=== PATIENT | female | born 1985 | race Caucasian/White ===

== ENCOUNTER 2016-11-18 13:16 | Emergency (ER) | payer OTHER ==
[~2016-11-18] VITALS: Ht 160 cm; Wt 56.8 kg
[~2016-11-18 13:16] MED LIST: ALBUTEROL17 GM IH; AMBIEN CR12.5 MG PO; AMBIEN10 MG PO; ANXIETY MED; BP MED; CEPHALEXIN500 MG PO; CHROMAGEN,1 CAPSULE PO; CYMBALTA30 MG PO; EFFEXOR XR75 MG PO; ESCITALOPRAM OX10 MG PO; FERROCITE324 MG PO; IBUPROFEN800 MG PO; LABETALOL HCL200 MG PO; LEXAPRO10 MG PO; LO-DOSE ASPIRIN81 M2 PO; LOPRESSOR25 MG PO; METHADONE10 MG PO; METHADOSE10 MG/1 ML PO; MOTRIN800 MG PO; NORMODYNE,TRAN200 MG PO; PRENATABS RX T1 EACH PO; PRINZIDE 20-121 EACH; PRINZIDE 20-121 EACH PO; SEROQUEL100 MG PO; TYLENOL EXTRA500 MG PO; ZANTAC75 M1 PO; ZOFRAN8 MG PO
[2016-11-18 13:20] VITALS: BP 130/80
== END 2016-11-18 14:29 | disposition left against medical advice (07) ==
LOC: EME → EDBD 13:16 → EME 14:29
DX: F41.9 Anxiety disorder, unspecified (principal); F14.10 Cocaine abuse, uncomplicated; F11.20 Opioid dependence, uncomplicated; F17.200 Nicotine dependence, unspecified, uncomplicated
CPT/HCPCS: 99281; 99285